=== PATIENT | male | born 1990 | race Caucasian/White ===

== ENCOUNTER 2018-08-01 12:27 | Emergency (ER) | payer OTHER ==
[~2018-08-01] VITALS: Ht 180.3 cm; Wt 68.0 kg
[2018-08-01 12:35] VITALS: BP 118/77
--- NOTE | 2018-08-01 13:57 | Emergency Room Report ---
History of Present Illness General Chief Complaint: Upper Extremity Injury Source: Patient Present Illness HPI Patient presents emergency department today complaining of right hand pain and numbness. Patient states he usually puts on a strap on his hand to help supported. This Goes over his thumb and then is wrapped around his wrist. He was driving today and after driving he felt some pain in his hand. He noticed that he was a little numb on his hand over the radial aspect of his hand in the dorsal aspect of the fourth and fifth finger. In addition he feels a little numbness or tingling sensation in his middle finger especially when he flexes his finger. He feels that his joints might be cracking in the wrist area. He denies any trauma. No other complaints are noted. Symptoms noted to be moderate.No other modifying factors. No other associated signs and symptoms. No other complaints were noted. Allergies: Coded Allergies: No Known Allergies (Unverified , 08/01/18) Patient History Past Medical History: none Past Surgical History: none Pertinent Family History: none Social History: Denies: smoking, alcohol use, drug use Reviewed Nursing Documentation: PMH: Agreed; PSxH: Agreed Nursing Documentation-PMH Past Medical History: No Stated History Review of Systems All Other Systems: negative except mentioned in HPI Physical Exam Vital Signs Date Time Temp Pulse Resp B/P (MAP) Pulse Ox O2 Delivery O2 Flow Rate FiO2 08/01/18 12:35 98.2 91 18 118/77 97 Room Air Sp02 EP Interpretation: reviewed, normal General Appearance: normal inspection, well appearing, no apparent distress, alert Head: atraumatic Eyes: bilateral eye normal inspection ENT: normal ENT inspection, hearing grossly normal, normal voice Neck: normal inspection, full range of motion, supple, no bony tend Respiratory: normal inspection, lungs clear, normal breath sounds, no respiratory distress, no retraction, no wheezing Cardiovascular #1: regular rate, rhythm, no edema Gastrointestinal: normal inspection, normal bowel sounds, non tender, soft, no guarding, no hernia Genitourinary: no CVA tenderness Musculoskeletal: normal inspection, back normal, normal range of motion, other - Numbness and tingling sensation noted right hand dorsal aspect fourth fifth digit Neurologic: normal inspection, alert, responsive, speech normal Psychiatric: normal inspection, judgement/insight normal, mood/affect normal Skin: normal inspection, normal color, no rash Procedures Splinting Splinting : Consent: Verbal Location: Right wrist Pre-Made Type: velcro Splint: thumb spica Pre-Proc Neuro Vasc Exam: normal Post-Proc Neuro Vasc Exam: normal Patient Tolerated: Well Complications: None Medical Decision Making Diagnostic Impression: Primary Impression: Sprain of wrist, right Additional Impression: Radial nerve entrapment ER Course Patient presents emergency department today complaint right wrist pain. Differential considerations cofactors patient restrained. Given patient's presentation I felt the patient likely suffering for radiculopathy from the strapping that he's using. Patient's x-rays are negative. Patient was given a thumb spica splint.Patient is advised to follow up with primary doctor in 2-3 days and return the emergency room for any worsening symptoms and as needed. Other X-Ray Diagnostic Results Other X-Ray Diagnostic Results : X-Ray ordered: right Wrist # of Views/Limited Vs Complete: 3 View Indication: Pain EP Interpretation: Yes Interpretation: no dislocation, no soft tissue swelling, no fractures Impression: No acute disease Electronically Signed by: Electronically signed by Arron Pham MD Last Vital Signs Date Time Temp Pulse Resp B/P (MAP) Pulse Ox O2 Delivery O2 Flow Rate FiO2 08/01/18 12:35 98.2 91 18 118/77 97 Room Air Status: improved Disposition: HOME, SELF-CARE Condition: Stable Scripts Ibuprofen* (MOTRIN*) 600 Mg Tablet 600 MG ORAL Q8H PRN for For Pain, #30 TAB 0 Refills Prov: Arron Pham MD 08/01/18 Referrals: NON PHYSICIAN (PCP) Arron Pham MD Aug 01, 2018 13:57
[2018-08-01] MEDS ORDERED: IBUPROFEN600 MG ORAL (13:58)
[2018-08-01 14:26] VITALS: BP 124/76
--- NOTE | 2018-08-01 15:10 | Diagnostic Imaging Report ---
Indication: Right hand pain Technique: 3 views right hand Comparison: none Findings: Bony alignment is normal. No acute fractures. No dislocations. Questionable old healed fracture deformity of the fifth metacarpal noted Impression: No acute process
--- NOTE | 2018-08-01 15:11 | Diagnostic Imaging Report ---
Clinical Indication:Pain Technique: 3 views of the right wrist Comparison: None Findings: No acute fractures. No dislocations. Joint spaces are preserved. Impression: Negative This agrees with the preliminary interpretation provided by the emergency room physician
== END 2018-08-01 14:27 | disposition home or self-care (01) ==
LOC: EMR 13:15
DX: S63.501A Unspecified sprain of right wrist, initial encounter (principal); X58.XXXA Exposure to other specified factors, initial encounter; Y92.89 Other specified places as the place of occurrence of the external cause
CPT/HCPCS: 29130; 99283